=== PATIENT | female | born 1995 | race Caucasian/White ===

== ENCOUNTER → 2016-12-14 | Outpatient (CLI) | payer OTHER ==
[2015-11-12 02:48] VITALS: BP 114/58
== END | disposition home or self-care (01) ==
LOC: LAB 08:02
PROVIDERS: ATTEND Internal Medicine Endocrinology, Diabetes & Metabolism
DX: R63.5 Abnormal weight gain (principal)
CPT/HCPCS: 36415; 82533

== ENCOUNTER 2020-09-02 22:29 | Emergency (ER) | payer MEDICAID, OTHER ==
[~2020-09-02] VITALS: Ht 177.8 cm; Wt 99.7 kg
[2020-09-02 22:30] VITALS: BP 153/90
--- NOTE | 2020-09-02 22:51 | PHYS DOC ---
Past History Past Medical History: No Pertinent History Past Surgical History: Other Alcohol Use: None Drug Use: None General Adult EDM: Chief Complaint: TOE PROBLEM HPI: HPI: ".. I stubbed my toe... I was trying to move my bed out from under a leak.. and jammed this Rt. toe into bed post..." Patient is a 24 year old femele who presents with injury Rt. 1st toe... Distal vascular is equal to left first toe. Does have edema and right first toe. It is painful to move. No other injury reported. Patient normally healthy. Patient does have a history of being a "toe walker " as child., Review of Systems: Review of Systems: Constitutional: Denies fever or chills Eyes: Denies change in visual acuity HENT: Denies nasal congestion or sore throat Respiratory: Denies cough or shortness of breath Cardiovascular: Denies chest pain or edema GI: Denies abdominal pain, nausea, vomiting, bloody stools or diarrhea : Denies dysuria Musculoskeletal: Complains of right first toe injury Integument: Denies rash Neurologic: Denies headache, focal weakness or sensory changes Endocrine: Denies polyuria or polydipsia Lymphatic: Denies swollen glands Psychiatric: Denies depression or anxiety Family History: Family History: Noncontributory to presentation Current Medications: Current Meds: See nursing for home meds Allergies: Allergies: Allergies Coded Allergies Type Severity Reaction Last Updated Verified Penicillins Allergy Intermediate 11/11/15 Yes Physical Exam: PE: Constitutional: Well developed, well nourished, no acute distress, non-toxic appearance. [] HENT: Normocephalic, atraumatic, bilateral external ears normal, oropharynx moist, no oral exudates, nose normal. [] Eyes: PERRLA, EOMI, conjunctiva normal, no discharge. [] Neck: Normal range of motion, no tenderness, supple, no stridor. [] Cardiovascular:Heart rate regular rhythm, no murmur [] Lungs & Thorax: Bilateral breath sounds clear to auscultation [] Abdomen: Bowel sounds normal, soft, no tenderness, no masses, no pulsatile masses. [] Skin: Warm, dry, no erythema, no rash. [] Back: No tenderness, no CVA tenderness. [] Extremities: No tenderness, no cyanosis, no clubbing, ROM intact, no edema. [] Except findings in right first toe as per HPI Neurologic: Alert and oriented X 3, normal motor function, normal sensory function, no focal deficits noted. [] Psychologic: Affect normal, judgement normal, mood normal. [] EKG: EKG: [] Radiology/Procedures: Radiology/Procedures: [][address] [address] IMAGING REPORT Signed PATIENT: BENITA CHERRY ACCOUNT: [id number] : 1995 LOCATION: ER AGE: 24 SEX: F EXAM STATUS: PRE ER ORD. PHYSICIAN: ANDERS CHARLES MD REASON: INJURY tonight, hit toe region on bed post, pain and swelling PROCEDURE: FOOT RIGHT 3V EXAM: XR FOOT_RIGHT 3 VIEWS 09/02/2020 10:46 PM CLINICAL INDICATION: Injury tonight, hit toe on bed COMPARISON: None TECHNIQUE: 3 views right foot FINDINGS: There is a nondisplaced intra-articular comminuted fracture of the great toe proximal phalanx extending to the interphalangeal joint. No other fracture or malalignment. Joint spaces are maintained. Soft tissue swelling at the great toe. IMPRESSION: Nondisplaced comminuted intra-articular fracture of the great toe proximal phalanx. Electronically signed by: Alice Mayorga MD (09/02/2020 11:14 PM) [id number] DICTATED AND SIGNED BY: ALICE MAYORGA MD DATE: 09/02/20 2313 CC: ANDERS CHARLES MD; RACHEL HARRIS PAC ~MTH0 0 Heart Score: Risk Factors: Risk Factors: DM, Current or recent (<one month) smoker, HTN, HLP, family history of CAD, obesity. Risk Scores: Score 0 - 3: 2.5% MACE over next 6 weeks - Discharge Home Score 4 - 6: 20.3% MACE over next 6 weeks - Admit for Clinical Observation Score 7 - 10: 72.7% MACE over next 6 weeks - Early Invasive Strategies Course & Med Decision Making: Course & Med Decision Making Pertinent Labs and Imaging studies reviewed. (See chart for details) Ice, elevation, rest, wear stiff shoe. Tylenol and ibuprofen for pain. For marked pain may take Vicoprofen. Follow-up primary care. Impression: 1. Comminuted nondisplaced fracture right first toe [] Dimple Disclaimer: Dimple Disclaimer: This electronic medical record was generated, in whole or in part, using a voice recognition dictation system. Departure Departure: Referrals: RACHEL HARRIS PAC (PCP) Scripts Hydrocodone/Ibuprofen (HYDROCODONE-IBUPROFEN 7.5-200 ) 1 Each Tablet 1 TAB PO PRN Q6HRS PRN for PAIN, #30 TAB 0 Refills Prov: ANDERS CHARLES MD 09/02/20 Dimple Disclaimer This chart was dictated in whole or in part using Voice Recognition software in a busy, high-work load, and often noisy Emergency Department environment. It may contain unintended and wholly unrecognized errors or omissions. ANDERS CHARLES MD Sep 02, 2020 22:51
[2020-09-02] MEDS ORDERED: oxyCODONE/APAP 5/325 1 TAB TABLET PO ONE (23:00)
[2020-09-02] MEDS ORDERED: HYDR-1179 PO (23:17)
--- NOTE | 2020-09-02 23:17 | RAD ---
EXAM: XR FOOT_RIGHT 3 VIEWS 09/02/2020 10:46 PM CLINICAL INDICATION: Injury tonight, hit toe on bed COMPARISON: None TECHNIQUE: 3 views right foot FINDINGS: There is a nondisplaced intra-articular comminuted fracture of the great toe proximal phal anx extending to the interphalangeal joint. No other fracture or malalignment. Joint spaces are maint ained. Soft tissue swelling at the great toe. IMPRESSION: Nondisplaced comminuted intra-articular fracture of the great toe proximal phalanx. Electronically signed by: Alice Mayorga MD (09/02/2020 11:14 PM) [id number]
== END 2020-09-02 23:30 | disposition home or self-care (01) ==
LOC: ER 22:29
DX: S92.414A Nondisplaced fracture of proximal phalanx of right great toe, initial encounter for closed fracture (principal); Z88.0 Allergy status to penicillin; W22.8XXA Striking against or struck by other objects, initial encounter; Y93.89 Activity, other specified; Y92.89 Other specified places as the place of occurrence of the external cause; Y99.8 Other external cause status
CPT/HCPCS: 73630; 99283